=== PATIENT | male | born 1980 | race Caucasian/White ===

== ENCOUNTER 2016-06-21 10:57 | Inpatient (IN) | payer OTHER ==
[2016-06-21 12:09] VITALS: BMI 31.1
--- NOTE | 2016-06-21 15:12 | HP ---
CIWA Score - CIWA Score Nausea/Vomitin-Mild Nausea/No Vomiting Muscle Tremors: 4-Moderate,w/Arms Extend Anxiety: 4-Mod. Anxious/Guarded Agitation: 4-Moderately Restless Paroxysmal Sweats: 3 Orientation: 0-Oriented Tacttile Disturbances: 0-None Auditory Disturbances: 0-None Visual Disturbances: 0-None Headache: 1-Very Mild CIWA-Ar Total Score: 17 Admission ROS S - HPI Chief Complaint: I need to detox Allergies/Adverse Reactions: Allergies Allergy/AdvReac Type Severity Reaction Status Date / Time metoclopramide HCl Allergy Severe Difficulty Verified 06/21/16 12:54 [From Reglan] Breathing prochlorperazine Allergy Severe Difficulty Verified 06/21/16 12:54 [From Compazine] Breathing prochlorperazine edisylate Allergy Severe Difficulty Verified 06/21/16 12:54 [From Compazine] Breathing prochlorperazine maleate Allergy Severe Difficulty Verified 06/21/16 12:54 [From Compazine] Breathing History of Present Illness: pt is a 36yr old male with a history of benzodiazapine dependence seeking detox for treatment. pt is also on a MMTP program last dose of 50mg taken today; pending verification. Exam Limitations: No Limitations - Ebola screening Have you traveled outside of the country in the last 21 days: No Have you had contact with anyone from an Ebola affected area: No Have you been sick,other than usual withdrawal symptoms: No Do you have a fever: No - Review of Systems Constitutional: Chills, Diaphoresis, Loss of Appetite, Night Sweats, Unintentional Wgt. Loss EENT: reports: Other (right eye blindness congential) Respiratory: reports: No Symptoms reported Cardiac: reports: Syncope GI: reports: Nausea, Poor Appetite, Poor Fluid Intake, Indigestion Musculoskeletal: reports: No Symptoms Reported Integumentary: reports: Flushing, Sweating Endocrine: reports: Excessive Sweating, Flushing, Intolerance to Cold, Intolerance to Heat Hematology: reports: No Symptoms Reported Psychiatric: reports: Judgement Intact, Orientated x3, Agitated, Anxious Other Systems: Reviewed and Negative Patient History - Patient Medical History Hx Anemia: No Hx Asthma: Yes (Pt is on MDI) Hx Chronic Obstructive Pulmonary Disease (COPD): No Hx Cancer: No Hx Cardiac Disorders: No Hx Hypertension: No Hx Hypercholesterolemia: No Hx Pacemaker: No HX Cerebrovascular Accident: No Hx Seizures: No Hx Dementia: No Hx Diabetes: No Hx Gastrointestinal Disorders: No Hx Liver Disease: Yes Hx Genitourinary Disorders: No Hx Sexually Transmitted Disorders: No Hx Renal Disease (ESRD): No Hx Thyroid Disease: No Hx Human Immunodeficiency Virus (HIV): No Hx Hepatitis C: Yes (TREATED.HEP B) Hx Depression: Yes Hx Suicide Attempt: No (denies) Hx Bipolar Disorder: Yes Hx Schizophrenia: No - Patient Surgical History Past Surgical History: Yes Hx Neurologic Surgery: No Hx Cataract Extraction: No Hx Cardiac Surgery: No Hx Lung Surgery: No Hx Breast Surgery: No Hx Breast Biopsy: No Hx Abdominal Surgery: No Hx Appendectomy: No Hx Cholecystectomy: Yes (2004.) Hx Genitourinary Surgery: No Hx Orthopedic Surgery: No Anesthesia Reaction: No - PPD History Previous Implant?: Yes Documented Results: Negative w/o proof Implanted On Prior R Admission?: Yes Date: 04/08/15 PPD to be Administered?: Yes - Reproductive History Patient is a Female of Child Bearing Age (11 -55 yrs old): No - Smoking Cessation Smoking history: Current every day smoker Have you smoked in the past 12 months: Yes Aproximately how many cigarettes per day: 10 Hx Chewing Tobacco Use: No Initiated information on smoking cessation: Yes 'Breaking Loose' booklet given: 06/21/16 - Substance & Tx. History Hx Alcohol Use: No Hx Substance Use: Yes Substance Use Type: Tranquilizers Hx Substance Use Treatment: No - Substances Abused Heroin Route: Injection Frequency: Daily Amount used: 2 bag Age of first use: 12 Date of Last Use: 06/21/16 xanax and klonopin Route: Oral Frequency: Daily Amount used: 6mg / 12-14mg Age of first use: 32 Date of Last Use: 06/21/16 Family Disease History - Family Disease History Family Disease History: Other: Mother (DRUG AND ALCOHOL) Admission Physical Exam BHS - Vital Signs Vital Signs: Vital Signs - 24 hr 06/21/16 12:06 Temperature 98.1 F Pulse Rate 122 H Respiratory 20 Rate Blood Pressure 128/67 - Physical General Appearance: Yes: Moderate Distress, Tremorous, Irritable, Sweating, Anxious HEENTM: Yes: Normal Voice, Nasal Congestion, Rhinorrhea Respiratory: Yes: Lungs Clear, Normal Breath Sounds, No Respiratory Distress Neck: Yes: No masses,lesions,Nodules Breast: Yes: Within Normal Limits Cardiology: Yes: Regular Rhythm, Regular Rate, S1, S2 Abdominal: Yes: Normal Bowel Sounds, Non Tender, Soft Genitourinary: Yes: Within Normal Limits Back: Yes: Normal Inspection Musculoskeletal: Yes: full range of Motion, Gait Steady Extremities: Yes: Normal Capillary Refill, Normal Inspection, Tremors Neurological: Yes: Fully Oriented, Alert, Normal Response Integumentary: Yes: Normal Color, Diaphoresis, Track [place] Lymphatic: Yes: Within Normal Limits - Diagnostic (1) Uncomplicated sedative, hypnotic, or anxiolytic withdrawal Current Visit: Yes Status: Chronic (2) Nicotine dependence Current Visit: Yes Status: Chronic Qualifiers: Nicotine product type: cigarettes Substance use status: uncomplicated Qualified Code(s): F17.210 - Nicotine dependence, cigarettes, uncomplicated (3) Asthma Current Visit: Yes Status: Acute (4) Hepatitis C Current Visit: Yes Status: Chronic Qualifiers: Viral hepatitis chronicity: chronic Hepatic coma status: without hepatic coma Qualified Code(s): B18.2 - Chronic viral hepatitis C (5) Hepatitis B Current Visit: Yes Status: Chronic Qualifiers: Viral hepatitis chronicity: chronic Hepatic coma status: without hepatic coma Qualified Code(s): - Cleared for Admission [facility] - Detox or Rehab [facility] Level of Care: Medically Managed Detox Regimen/Protocol: Valium Claeared for Rehab Admission: Yes [facility] Breath Alcohol Content Breath Alcohol Content: 0 Urine Drug Screen - Results Drug Screen Negative: No Urine Drug Screen Results: OPI-Opiates, BZO-Benzodiazepines, MTD-Methadone
[2016-06-21] MEDS ORDERED: LOPERAMIDE HCL 2 MG CAPSULE PO PRN (15:30)
[2016-06-21] MEDS ORDERED: guaiFENesin/D-METHORPHAN HB 10 ML UNIT-DOSE CUPS PO PRN (15:30)
[2016-06-21] MEDS ORDERED: ACETAMINOPHEN 325 MG TABLET (FP) PO PRN (15:30)
[2016-06-21] MEDS ORDERED: IBUPROFEN 400 MG TABLET (FP) PO PRN (15:30)
[2016-06-21] MEDS ORDERED: MAG HYDROX/AL HYDROX/SIMETH 30 ML UNIT-DOSE CUP PO PRN (15:30)
[2016-06-21] MEDS ORDERED: P-EPHED 60MG/TRIPROLIDI 2.5MG TABLET PO PRN (15:30)
[2016-06-21] MEDS ORDERED: MAGNESIUM CITRATE 300 ML BOTTLE PO PRN (15:30)
[2016-06-21] MEDS ORDERED: MENTHOL/PHENOL 1 EACH UD MM PRN (15:30)
[2016-06-21] MEDS ORDERED: hydrOXYzine PAMOATE 50 MG CAPSULE (FP) PO PRN (15:30)
[2016-06-21] MEDS ORDERED: MAGNESIUM HYDROX 2400MG/30ML ORAL SUSPENSION 30 ML CUP PO PRN (15:30)
[2016-06-21] MEDS ORDERED: diphenhydrAMINE HCL 50 MG CAPSULE PO PRN (15:30)
[2016-06-21] MEDS ORDERED: diazePAM 5 MG TABLET PO ONE (16:15)
[2016-06-21] MEDS: diazePAM 5 MG TABLET PO SCH ×2 (17:01→22:06)
[2016-06-21] MEDS: NICOTINE POLACRILEX 4 MG GUM BC PRN (17:43)
[2016-06-21 20:58] LABS: URINE APPEARANCE CLEAR; URINE BILIRUBIN NEGATIVE (NEGATIVE); URINE BLOOD NEGATIVE (NEGATIVE); URINE COLOR STRAW; URINE GLUCOSE (UA) NEGATIVE (NEGATIVE); URINE KETONE NEGATIVE (NEGATIVE); URINE LEUK ESTERASE NEGATIVE (NEGATIVE); URINE NITRITE NEGATIVE (NEGATIVE); URINE PROTEIN NEGATIVE (NEGATIVE); URINE UROBILINOGEN NEGATIVE E.U./dl (0.2-1.0)
[2016-06-21] MEDS: THIAMINE HCL 100 MG TABLET (FP) PO SCH (22:06)
[2016-06-21 22:45] LABS: HIV 1 & 2 AB NEGATIVE; HIV 1 AGp24 NEGATIVE
[2016-06-22] MEDS: diazePAM 5 MG TABLET PO SCH ×3 (06:14→22:05)
[2016-06-22] MEDS ORDERED: METHADONE HCL 10 MG TABLET PO ONE (08:36)
[2016-06-22] MEDS ORDERED: METHADONE 40 MG, METHADONE 10 MG PO ONE (09:00)
[2016-06-22] MEDS ORDERED: METHADONE HCL 40 MG DISPERSABLE TABLET ONE (09:13)
[2016-06-22] MEDS ORDERED: METHADONE HCL 10 MG TABLET ONE (09:13)
--- NOTE | 2016-06-22 09:40 | CONSULT ---
[facility] Psychiatric Consult - Data Date of interview: 06/22/16 Admission source: [facility] Identifying data: Moe Bond is a Readmission to [facility] for this 34 y/o male seeking detox treatment for heroin and benzodiazepine dependence.He is single,a father of two,domiciled,unemployed and supported on SSI benefits. Substance Abuse History: Patient reports using 2 bags of heroin daily.Onset at age 12.Last use :06/20/16.Has been using xanax since age 32.Last use 06/20/16 (6- 14 mg/day). 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 Psychiatric History: Patient admits to a history of multiple psychiatric hospitalizations.Onset of mental illness at age 21.Diagnosed with bipolar disorder.Mr Bond gets his psychiatric outpatient services at the [facility] in the [place].Medications :seroquel 100 mg/am + 400 mg/hs + bupropion 300 mg/day + zolpidem 10 mg/hs + klonopin 2mg po bid.Confirmed by pharmacy claims @ [facility] (filled scripts on 06/20/16).Patient denies history of suicide attempts.He is known to [facility] and [facility]. Physical/Sexual Abuse/Trauma History: Patient denies. Mental Status Exam - Mental Status Exam Alert and Oriented to: Time, Place, Person Cognitive Function: Good Patient Appearance: Disheveled Mood: Nervous, Withdrawn, Apprehensive Affect: Mood Congruent Patient Behavior: Fatigued, Talkative, Cooperative Speech Pattern: Clear Voice Loudness: Normal Thought Process: Goal Oriented Thought Disorder: Not Present Hallucinations: Denies Suicidal Ideation: Denies Homicidal Ideation: Denies Insight/Judgement: Poor Sleep: Poorly, Difficulty falling asleep Appetite: Good Muscle strength/Tone: Normal Gait/Station: Normal Psychiatric Findings - Problem List ([place] 1, 2,3) (1) Nicotine dependence Current Visit: Yes Status: Acute Qualifiers: Nicotine product type: cigarettes Substance use status: uncomplicated Qualified Code(s): F17.210 - Nicotine dependence, cigarettes, uncomplicated (2) Uncomplicated sedative, hypnotic, or anxiolytic withdrawal Current Visit: Yes Status: Acute (3) Opioid dependence on agonist therapy Current Visit: Yes Status: Chronic (4) Opioid dependence with withdrawal Current Visit: Yes Status: Acute (5) Bipolar disorder Current Visit: Yes Status: Acute (6) Substance induced mood disorder Current Visit: Yes Status: Chronic (7) Asthma Current Visit: Yes Status: Acute (8) Hepatitis B Current Visit: Yes Status: Chronic Qualifiers: Viral hepatitis chronicity: chronic Hepatic coma status: without hepatic coma (9) Hepatitis C Current Visit: Yes Status: Chronic Qualifiers: Viral hepatitis chronicity: chronic Hepatic coma status: without hepatic coma Qualified Code(s): B18.2 - Chronic viral hepatitis C (10) Insomnia Current Visit: Yes Status: Chronic - Initial Treatment Plan Initial Treatment Plan: Psychoeducation.Detoxification.Medications :seroquel 300 mg po hs + bupropion XL 300 mg po daily.Side effects/benefits discussed with patient.He agrees with this careplan.Observation.No scripts necessary at discharge (refills issued on 06/20/16).
[2016-06-22] MEDS: PRENATAL VITAMINS W/ FOLIC ACID TABLET (FP) PO SCH (10:04)
[2016-06-22] MEDS: NICOTINE 21 MG/24 HOURS TOPICAL PATCH TD SCH (10:06)
[2016-06-22 10:12] LABS: MCH 29.1 pg (25.7-33.7); MCHC 33.3 g/dl (32.0-35.9); MEAN CELL VOLUME 87.2 fl (80-96); MEAN PLT VOLUME 9.6 fl (7.5-11.1); PLATELET COUNT 262 K/MM3 (134-434); RDW 15.3 % (11.9-15.9); WHITE BLOOD COUNT 8.5 K/mm3 (4.0-10.0)
[2016-06-22 10:21] LABS: ALBUMIN 4.2 g/dl (3.4-5.0); ANION GAP 10 (8-16); CALCIUM 8.7 mg/dL (8.5-10.1); CO2 28 mmol/L (21-32); GLUCOSE,RANDOM 114 mg/dL (74-106); SGPT/ALT 24 U/L (12-78)
[2016-06-22 10:24] LABS: ALK PHOS 107 U/L (45-117); BILIRUBIN,TOTAL 0.3 mg/dL (0.2-1.0); CREATININE 1.2 mg/dL (0.7-1.3); SGOT/AST 21 U/L (15-37)
--- NOTE | 2016-06-22 10:31 | PN ---
S CIWA - CIWA Score Nausea/Vomitin Muscle Tremors: 3 Anxiety: 2 Agitation: 3 Paroxysmal Sweats: 2 Orientation: 0-Oriented Tacttile Disturbances: 0-None Auditory Disturbances: 1-Very Mild Visual Disturbances: 2-Mild Sensitivity Headache: 0-None Present CIWA-Ar Total Score: 16 BHS Progress Note (SOAP) Objective: 06/22/16 10:31 Vital Signs - 24 hr 06/21/16 06/21/16 06/21/16 12:06 17:50 22:08 Temperature 98.1 F 98.4 F 97.0 F L Pulse Rate 122 H 91 H 79 Respiratory 20 20 18 Rate Blood Pressure 128/67 120/63 109/63 06/22/16 06/22/16 06/22/16 00:30 03:30 06:43 Temperature 96.3 F L Pulse Rate 84 Respiratory 18 18 18 Rate Blood Pressure 101/60 06/22/16 09:42 Temperature 96.6 F L Pulse Rate 81 Respiratory 18 Rate Blood Pressure 95/56 Laboratory Results - last 24 hr 06/21/16 06/21/16 06/22/16 14:20 19:00 06:00 WBC 8.5 RBC 4.21 Hgb 12.2 Hct 36.7 MCV 87.2 MCHC 33.3 RDW 15.3 D Plt Count 262 MPV 9.6 Sodium Potassium Chloride Carbon Dioxide Anion Gap BUN Creatinine Creat Clearance w eGFR Random Glucose Calcium Total Bilirubin AST ALT Alkaline Phosphatase Total Protein Albumin Urine Color Straw Urine Appearance Clear Urine pH 7.0 D Ur Specific [place] 1.006 Urine Protein Negative Urine Glucose (UA) Negative Urine Ketones Negative Urine Blood Negative Urine Nitrite Negative Urine Bilirubin Negative Urine Urobilinogen Negative Ur Leukocyte Esterase Negative HIV 1&2 Antibody Screen Negative HIV P24 Antigen Negative 06/22/16 06:00 WBC RBC Hgb Hct MCV MCHC RDW Plt Count MPV Sodium 142 Potassium 4.3 D Chloride 104 Carbon Dioxide 28 Anion Gap 10 BUN 9 D Creatinine 1.2 D Creat Clearance w eGFR > 60 Random Glucose 114 H Calcium 8.7 Total Bilirubin 0.3 AST 21 D ALT 24 D Alkaline Phosphatase 107 D Total Protein 8.0 D Albumin 4.2 Urine Color Urine Appearance Urine pH Ur Specific [place] Urine Protein Urine Glucose (UA) Urine Ketones Urine Blood Urine Nitrite Urine Bilirubin Urine Urobilinogen Ur Leukocyte Esterase HIV 1&2 Antibody Screen HIV P24 Antigen Assessment: 06/22/16 10:31 ongoing withdrawal Plan: continue detox protocol
--- NOTE | 2016-06-22 16:12 | EKG ---
Test Reason : Blood Pressure : / mmHG Vent. Rate : 087 BPM Atrial Rate : 087 BPM P-R Int : 140 ms QRS Dur : 090 ms QT Int : 384 ms P-R-T Axes : 051 058 039 degrees QTc Int : 462 ms NORMAL SINUS RHYTHM NORMAL ECG NO PREVIOUS ECGS AVAILABLE Confirmed by DOMONIQUE SYED MD ([id number]) on 06/22/2016 4:12:28 PM Referred By: Confirmed By:DOMONIQUE SYED MD
[2016-06-22] MEDS ORDERED: QUEtiapine FUMARATE 300 MG TABLET PO SCH (22:00)
[2016-06-22] MEDS: THIAMINE HCL 100 MG TABLET (FP) PO SCH (22:06)
[2016-06-23] MEDS ORDERED: METHADONE HCL 10 MG TABLET ONE (05:03)
[2016-06-23] MEDS ORDERED: METHADONE HCL 40 MG DISPERSABLE TABLET ONE (05:04)
[2016-06-23] MEDS ORDERED: METHADONE HCL 40 MG DISPERSABLE TABLET PO SCH (06:00)
[2016-06-23] MEDS: METHADONE 40 MG, METHADONE 10 MG PO SCH (07:28)
[2016-06-23] MEDS: NICOTINE POLACRILEX 4 MG GUM BC PRN (09:36)
[2016-06-23] MEDS: NICOTINE 21 MG/24 HOURS TOPICAL PATCH TD SCH (09:37)
[2016-06-23] MEDS: diazePAM 5 MG TABLET PO SCH ×2 (10:12→22:09)
[2016-06-23] MEDS: PRENATAL VITAMINS W/ FOLIC ACID TABLET (FP) PO SCH (10:12)
--- NOTE | 2016-06-23 10:35 | PN ---
[facility] CIWA - CIWA Score Nausea/Vomitin Muscle Tremors: 4-Moderate,w/Arms Extend Anxiety: 4-Mod. Anxious/Guarded Agitation: 4-Moderately Restless Paroxysmal Sweats: 3 Orientation: 0-Oriented Tacttile Disturbances: 0-None Auditory Disturbances: 0-None Visual Disturbances: 0-None Headache: 0-None Present CIWA-Ar Total Score: 18 BHS COWS - Scale Resting Pulse: 1= SC 81-100 Sweatin= Chills/Flushing Restless Observation: 1= Difficult to Sit Still Pupil Size: 1= Pupils >than Normal Bone or Joint Aches: 1= Mild Discomfort Runny Nose/ Eye Tearin= Runny Nose/Eyes GI Upset > 30mins: 2= Nausea/Diarrhea Tremor Observation of Outstretched Hands: 2= Slight Tremor Visible Yawning Observation: 2= >3x During Session Anxiety or Irritability: 2=Irritable/Anxious Goose Flesh Skin: 3=Piloerection COWS Score: 18 [facility] Progress Note (SOAP) Subjective: nausea, sweats, interrutped sleep, anxiety, tremors Objective: 06/23/16 10:34 Vital Signs - 24 hr 06/22/16 06/22/16 06/22/16 13:54 17:35 21:30 Temperature 97.9 F 97.3 F L 97.7 F Pulse Rate 81 75 78 Respiratory 18 18 16 Rate Blood Pressure 108/63 108/51 116/67 06/23/16 06/23/16 06/23/16 03:24 06:00 10:12 Temperature 97.5 F L 97.7 F Pulse Rate 69 89 Respiratory 16 20 18 Rate Blood Pressure 114/69 95/74 Laboratory Tests 06/21/16 06/21/16 06/22/16 14:20 19:00 06:00 WBC 8.5 RBC 4.21 Hgb 12.2 Hct 36.7 MCV 87.2 MCHC 33.3 RDW 15.3 D Plt Count 262 MPV 9.6 Sodium Potassium Chloride Carbon Dioxide Anion Gap BUN Creatinine Creat Clearance w eGFR Random Glucose Calcium Total Bilirubin AST ALT Alkaline Phosphatase Total Protein Albumin Urine Color Straw Urine Appearance Clear Urine pH 7.0 D Ur Specific [place] 1.006 Urine Protein Negative Urine Glucose (UA) Negative Urine Ketones Negative Urine Blood Negative Urine Nitrite Negative Urine Bilirubin Negative Urine Urobilinogen Negative Ur Leukocyte Esterase Negative RPR Titer HIV 1&2 Antibody Screen Negative HIV P24 Antigen Negative 06/22/16 06/22/16 06:00 06:00 WBC RBC Hgb Hct MCV MCHC RDW Plt Count MPV Sodium 142 Potassium 4.3 D Chloride 104 Carbon Dioxide 28 Anion Gap 10 BUN 9 D Creatinine 1.2 D Creat Clearance w eGFR > 60 Random Glucose 114 H Calcium 8.7 Total Bilirubin 0.3 AST 21 D ALT 24 D Alkaline Phosphatase 107 D Total Protein 8.0 D Albumin 4.2 Urine Color Urine Appearance Urine pH Ur Specific [place] Urine Protein Urine Glucose (UA) Urine Ketones Urine Blood Urine Nitrite Urine Bilirubin Urine Urobilinogen Ur Leukocyte Esterase RPR Titer Nonreactive HIV 1&2 Antibody Screen HIV P24 Antigen Assessment: 06/23/16 10:35 withdrawal sx Plan: cont detox, fluids, ambulation
[2016-06-23] MEDS: diazePAM 5 MG TABLET PO PRN ×2 (14:24→18:18)
--- NOTE | 2016-06-23 18:19 | PN ---
[facility] Progress Note Note: Psychiatry Attending's note : Met briefly with patient earlier during the day. Discussion :titration of seroquel. Pharmacy claims revisited.See my note of 06/22/16. Patient observed as ambulatory,steady and cognitively intact. Plan : seroquel is increased to 400 mg po hs. Mr Bond agrees with this careplan.
[2016-06-23] MEDS: QUEtiapine FUMARATE 200 MG TABLET PO SCH (22:08)
[2016-06-23] MEDS: THIAMINE HCL 100 MG TABLET (FP) PO SCH (22:08)
[2016-06-24] MEDS ORDERED: METHADONE HCL 10 MG TABLET ONE (05:07)
[2016-06-24] MEDS ORDERED: METHADONE HCL 40 MG DISPERSABLE TABLET ONE (05:07)
[2016-06-24] MEDS: METHADONE 40 MG, METHADONE 10 MG PO SCH (05:25)
[2016-06-24] MEDS: diazePAM 5 MG TABLET PO PRN ×2 (05:28→14:19)
[2016-06-24] MEDS: PRENATAL VITAMINS W/ FOLIC ACID TABLET (FP) PO SCH (10:16)
[2016-06-24] MEDS: diazePAM 5 MG TABLET PO SCH ×2 (10:16→22:01)
[2016-06-24] MEDS: NICOTINE 21 MG/24 HOURS TOPICAL PATCH TD SCH (10:17)
--- NOTE | 2016-06-24 11:13 | PN ---
[facility] Progress Note (SOAP) Subjective: SWEATING,INTERRUPTED SLEEP,RESTLESS. Objective: 06/24/16 11:12 Vital Signs - 8 hr 06/24/16 06/24/16 06/24/16 03:30 06:00 10:00 Temperature 97.7 F 98.6 F Pulse Rate 71 94 H Respiratory 18 20 18 Rate Blood Pressure 104/64 126/72 Laboratory Tests 06/21/16 06/21/16 06/22/16 14:20 19:00 06:00 WBC 8.5 RBC 4.21 Hgb 12.2 Hct 36.7 MCV 87.2 MCHC 33.3 RDW 15.3 D Plt Count 262 MPV 9.6 Sodium Potassium Chloride Carbon Dioxide Anion Gap BUN Creatinine Creat Clearance w eGFR Random Glucose Calcium Total Bilirubin AST ALT Alkaline Phosphatase Total Protein Albumin Urine Color Straw Urine Appearance Clear Urine pH 7.0 D Ur Specific [place] 1.006 Urine Protein Negative Urine Glucose (UA) Negative Urine Ketones Negative Urine Blood Negative Urine Nitrite Negative Urine Bilirubin Negative Urine Urobilinogen Negative Ur Leukocyte Esterase Negative RPR Titer HIV 1&2 Antibody Screen Negative HIV P24 Antigen Negative 06/22/16 06/22/16 06:00 06:00 WBC RBC Hgb Hct MCV MCHC RDW Plt Count MPV Sodium 142 Potassium 4.3 D Chloride 104 Carbon Dioxide 28 Anion Gap 10 BUN 9 D Creatinine 1.2 D Creat Clearance w eGFR > 60 Random Glucose 114 H Calcium 8.7 Total Bilirubin 0.3 AST 21 D ALT 24 D Alkaline Phosphatase 107 D Total Protein 8.0 D Albumin 4.2 Urine Color Urine Appearance Urine pH Ur Specific [place] Urine Protein Urine Glucose (UA) Urine Ketones Urine Blood Urine Nitrite Urine Bilirubin Urine Urobilinogen Ur Leukocyte Esterase RPR Titer Nonreactive HIV 1&2 Antibody Screen HIV P24 Antigen LABS NOTED Assessment: 06/24/16 11:12 WITHDRAWAL SX. Plan: CONTINUE DETOX
[2016-06-24] MEDS: QUEtiapine FUMARATE 200 MG TABLET PO SCH (22:01)
[2016-06-24] MEDS: THIAMINE HCL 100 MG TABLET (FP) PO SCH (22:01)
[2016-06-25] MEDS ORDERED: METHADONE HCL 40 MG DISPERSABLE TABLET ONE (04:11)
[2016-06-25] MEDS ORDERED: METHADONE HCL 10 MG TABLET ONE (04:11)
[2016-06-25] MEDS: METHADONE 40 MG, METHADONE 10 MG PO SCH (05:10)
--- NOTE | 2016-06-25 08:34 | DS ---
[facility] Detox Discharge Summary Admission Date: 06/21/16 Discharge Date: 06/25/16 - History Present History: Sedative Dependence - Physical Exam Results Vital Signs: Vital Signs Temperature 96.7 F L 06/25/16 05:18 Pulse Rate 96 H 06/25/16 05:18 Respiratory Rate 20 06/25/16 05:18 Blood Pressure 105/65 06/25/16 05:18 O2 Sat by Pulse Oximetry (%) - Treatment Hospital Course: Detox Protocol Followed, Detoxed Safely, Responded well, Discharged Condition Good, Rehab Referral Accepted - Medication Discharge Medications: Ambulatory Orders Aspirin [ASA -] 81 mg PO DAILY 06/21/16 Baclofen 10 mg PO DAILY 06/21/16 Budesonide/Formeterol Fumarate [SYMBICORT 160/4.5mcg -] 1 inh PO BID 06/21/16 Bupropion HCl [Bupropion Xl] 300 mg PO DAILY 06/21/16 Montelukast Na [Singulair -] 10 mg PO HS 06/21/16 Quetiapine Fumarate [Seroquel -] 100 mg PO DAILY 06/21/16 Quetiapine Fumarate [Seroquel -] 400 mg PO HS 06/21/16 Zolpidem Tartrate [Ambien] 10 mg PO HS 06/21/16 - Diagnosis (1) Uncomplicated sedative, hypnotic, or anxiolytic withdrawal Current Visit: Yes Status: Chronic (2) Nicotine dependence Current Visit: Yes Status: Chronic Qualifiers: Nicotine product type: cigarettes Substance use status: uncomplicated Qualified Code(s): F17.210 - Nicotine dependence, cigarettes, uncomplicated (3) Asthma Current Visit: Yes Status: Chronic Qualifiers: Asthma severity: mild intermittent (4) Hepatitis C Current Visit: Yes Status: Chronic Qualifiers: Viral hepatitis chronicity: chronic Hepatic coma status: without hepatic coma Qualified Code(s): B18.2 - Chronic viral hepatitis C (5) Hepatitis B Current Visit: Yes Status: Chronic Qualifiers: Viral hepatitis chronicity: chronic Hepatic coma status: without hepatic coma - AMA Did Patient Leave Against Medical Advice: No
[2016-06-25] MEDS ORDERED: diazePAM 5 MG TABLET PO SCH (10:00)
[2016-06-25 10:03] VITALS: BP 125/68; PULSE 91; TEMP 97
== END 2016-06-25 09:10 | disposition home or self-care (01) | DRG 773 ==
LOC: YASAS 10:57 → Y6N 13:51
PROVIDERS: ADMIT Internal Medicine Addiction Medicine; ATTEND Internal Medicine Addiction Medicine
PROC: HZ2ZZZZ Detoxification Services for Substance Abuse Treatment (ICD-10-PCS; principal; 2016-06-25)
DX: F11.23 Opioid dependence with withdrawal (principal); F13.230 Sedative, hypnotic or anxiolytic dependence with withdrawal, uncomplicated; F17.210 Nicotine dependence, cigarettes, uncomplicated; F31.9 Bipolar disorder, unspecified; F19.24 Other psychoactive substance dependence with psychoactive substance-induced mood disorder; J45.20 Mild intermittent asthma, uncomplicated; B18.2 Chronic viral hepatitis C; B19.10 Unspecified viral hepatitis B without hepatic coma; G47.00 Insomnia, unspecified
CPT/HCPCS: 36415; 80053; 81003; 85027; 86593; 87389; 93005; 93010